=== PATIENT | female | born 2000 | race American Indian/Alaskan Native ===

== ENCOUNTER 2019-05-10 03:15 | Emergency (ER) | payer SELFPAY ==
[2019-05-10] MEDS ORDERED: SOLU-Medrol IM ONE (03:45)
[2019-05-10] MEDS ORDERED: BENADRYL PO ONE (03:45)
[2019-05-10] MEDS ORDERED: PEPCID PO ONE (03:45)
--- NOTE | 2019-05-10 04:46 | Emergency Department Report ---
ED General Adult HPI - General Chief complaint: Skin Rash Stated complaint: RASH/BITES/ALLERGIC REACTION Time Seen by Provider: 05/10/19 03:35 Source: patient Mode of arrival: Ambulatory Limitations: No Limitations - History of Present Illness Initial comments: Patient is a 19-year-old white female with no past medical history presents to the ED with complaint of acute onset persistent itchy erythematous papular urticarial rashes for the last 2 weeks intermittently. The patient states that the itching rashes or worsened the last 2 days especially in the evening. Patient states that she is unsure of the etiology of this rashes. Patient denies shortness of breath, swollen lips or tongue, dysphagia, dysphonia, wheezing, cough, chest pain, swollen face or eyes, nausea, vomiting, diarrhea or abdominal pain, dizziness, fever, chills or nasal congestion. MD Complaint: itching, allergic reaction; hives -: Sudden, week(s) (2) Location: neck, chest, back, abdomen, upper extremity, lower extremity Radiation: non-radiation Severity scale (0 -10): 7 Quality: burning, other (itching) Consistency: intermittent Improves with: none Worsens with: none Associated Symptoms: denies other symptoms. denies: confusion, chest pain, cough, diaphoresis, fever/chills, headaches, loss of appetite, malaise, na usea/vomiting, rash, seizure, shortness of breath, syncope, weakness Treatments Prior to Arrival: none - Related Data Previous Rx's Medication Instructions Recorded Last Taken Type Prednisone [predniSONE 10 mg 10 mg PO .TAPER #21 tab.ds.pk 05/10/19 Unknown Rx (6-Day Pack, 21 Tabs)] hydrOXYzine PAMOATE [Vistaril] 25 mg PO Q6HR PRN #30 capsule 05/10/19 Unknown Rx raNITIdine HCl [Zantac] 150 mg PO Q12H #30 tablet 05/10/19 Unknown Rx Allergies Allergy/AdvReac Type Severity Reaction Status Date / Time No Known Allergies Allergy Unverified 05/10/19 04:49 ED Review of Systems ROS: Stated complaint: RASH/BITES/ALLERGIC REACTION Other details as noted in HPI Constitutional: denies: chills, fever Eyes: denies: eye pain, eye discharge, vision change ENT: denies: ear pain, throat pain Respiratory: denies: cough, shortness of breath, wheezing Cardiovascular: denies: chest pain, palpitations Endocrine: no symptoms reported Gastrointestinal: denies: abdominal pain, nausea, diarrhea Genitourinary: denies: urgency, dysuria, discharge Musculoskeletal: denies: back pain, joint swelling, arthralgia Skin: rash, change in color, pruritus, other (diffuse erythematous maculopapular itchy urticarial rash). denies: lesions Neurological: denies: headache, weakness, paresthesias Psychiatric: denies: anxiety, depression Hematological/Lymphatic: denies: easy bleeding, easy bruising ED Past Medical Hx - Past Medical History Previous Medical History?: No - Surgical History Past Surgical History?: No - Social History Smoking Status: Never Smoker Substance Use Type: None - Medications Home Medications: Home Medications Medication Instructions Recorded Confirmed Last Taken Type Prednisone [predniSONE 10 mg 10 mg PO .TAPER #21 tab.ds.pk 05/10/19 Unknown Rx (6-Day Pack, 21 Tabs)] hydrOXYzine PAMOATE [Vistaril] 25 mg PO Q6HR PRN #30 capsule 05/10/19 Unknown Rx raNITIdine HCl [Zantac] 150 mg PO Q12H #30 tablet 05/10/19 Unknown Rx ED Physical Exam - General Limitations: No Limitations General appearance: alert, in no apparent distress - Head Head exam: Present: atraumatic, normocephalic, normal inspection - Eye Eye exam: Present: normal appearance, PERRL, EOMI. Absent: scleral icterus, conjunctival injection, nystagmus, periorbital swelling, periorbital tenderness Pupils: Present: normal accommodation - ENT ENT exam: Present: normal exam, normal orophraynx, mucous membranes moist, TM's normal bilaterally, normal external ear exam - Neck Neck exam: Present: normal inspection, full ROM. Absent: tenderness, meningismus, lymphadenopathy - Respiratory Respiratory exam: Present: normal lung sounds bilaterally. Absent: respiratory distress, wheezes, rales, accessory muscle use - Cardiovascular Cardiovascular Exam: Present: normal rhythm, tachycardia, normal heart sounds. Absent: systolic murmur, diastolic murmur, rubs, gallop - GI/Abdominal GI/Abdominal exam: Present: soft, normal bowel sounds. Absent: tenderness, guarding, rebound, hyperactive bowel sounds, hypoactive bowel sounds, organomegaly - Rectal Rectal exam: Present: deferred - Extremities Exam Extremities exam: Present: normal inspection, full ROM, normal capillary refill - Back Exam Back exam: Present: normal inspection, full ROM. Absent: tenderness, CVA tenderness (R), CVA tenderness (L), muscle spasm, paraspinal tenderness, vertebral tenderness - Neurological Exam Neurological exam: Present: alert, oriented X3, CN II-XII intact, normal gait, reflexes normal - Psychiatric Psychiatric exam: Present: normal affect, normal mood, anxious - Skin Skin exam: Present: warm, dry, intact, rash (diffuse erythematous maculopapular urticarial rashes), erythema, urticaria ED Course Vital Signs 05/10/19 05/10/19 05/10/19 03:24 05:16 05:20 Temperature 98.6 F 98.6 F Pulse Rate 120 H 70 Respiratory 18 16 Rate Blood Pressure 125/79 Blood Pressure 135/85 [Right] O2 Sat by Pulse 98 99 Oximetry - Reevaluation(s) Reevaluation #1: 05/10/19 06:03 This is a 19-year-old white female who presented to the ED with complaint of acute onset each erythematous maculopapular urticarial rashes for 2 weeks. Patient is alert and oriented 3, anxious and tachycardic in triage but in no acute distress. Patient was treated in the ED for acute allergic reaction with steroids, Benadryl and Pepcid. On reevaluation, patient's wheezing has resolved and the rashes have improved significantly. Patient was discharged home on a steroid Dosepak, Vistaril and Zantac and advised to follow-up with her primary care physician in 5-7 days for reevaluation. On reevaluation, the patient's tachycardia resolved with treatment. Patient was also advised to return to the ED immediately if symptoms get worse. 05/10/19 06:04 ED Medical Decision Making - Medical Decision Making This is a 19-year-old white female who presented to the ED with complaint of acute onset each erythematous maculopapular urticarial rashes for 2 weeks. Patient is alert and oriented 3, anxious and tachycardic in triage but in no acute distress. Patient was treated in the ED for acute allergic reaction with steroids, Benadryl and Pepcid. On reevaluation, patient's wheezing has resolved and the rashes have improved significantly. Patient was discharged home on a steroid Dosepak, Vistaril and Zantac and advised to follow-up with her primary care physician in 5-7 days for reevaluation. On reevaluation, the patient's tachycardia resolved with treatment. Patient was also advised to return to the ED immediately if symptoms get worse. - Differential Diagnosis acute allergic reaction; itching with irritation, urticaria Critical care attestation.: If time is entered above; I have spent that time in minutes in the direct care of this critically ill patient, excluding procedure time. ED Disposition Clinical Impression: Acute urticaria, Itching with irritation Acute allergic reaction Qualifiers: Encounter type: initial encounter Qualified Code(s): T78.40XA - Allergy, unspecified, initial encounter Disposition: TO HOME OR SELFCARE Is pt being admited?: No Does the pt Need Aspirin: No Condition: Stable Instructions: Urticaria (ED), Allergies (ED), Itchy Skin (ED) Additional Instructions: Take medications with food, drink plenty of fluids and follow-up with your primary care physician in 7-10 days for reevaluation. Return to the ED immediately if symptoms get worse. Prescriptions: Prednisone [predniSONE 10 mg (6-Day Pack, 21 Tabs)] 10 mg PO .TAPER #21 tab.ds.pk hydrOXYzine PAMOATE [Vistaril] 25 mg PO Q6HR PRN #30 capsule PRN Reason: Itching raNITIdine HCl [Zantac] 150 mg PO Q12H #30 tablet Referrals: [facility] [Outside] - 3-5 Days Time of Disposition: 05:08 Print Language: DIVEHI
[2019-05-10 05:17] VITALS: BP 135/85
== END 2019-05-10 06:00 | disposition home or self-care (01) ==
LOC: ED 03:15
DX: L50.0 Allergic urticaria (principal); Z79.899 Other long term (current) drug therapy
CPT/HCPCS: 96372; 99282; J2930

== ENCOUNTER 2019-08-26 00:22 | Emergency (ER) | payer SELFPAY ==
[2019-08-26 00:46] VITALS: BP 113/83
--- NOTE | 2019-08-26 01:14 | XRay Report ---
CHEST 2 VIEWS, 08/26/2019 1:02 AM INDICATION: Chest pain for one week COMPARISON: None FINDINGS: Support devices: None Heart: Heart size and pulmonary vascularity are within normal limits. Lungs/pleura: The lungs are well expanded and appear clear. Additional findings: Evaluation of bony structures demonstrates no evidence of acute bony abnormality . IMPRESSION: 1. No evidence of acute cardiopulmonary process. Signer Name: Nyasia Varghese MD Signed: 08/26/2019 1:10 AM Workstation Name: [email or web address]
--- NOTE | 2019-08-26 01:44 | Emergency Department Report ---
HPI - General Chief Complaint: Chest Pain Time Seen by Provider: 08/26/19 01:07 - [facility] HPI: Room 33 The patient is a 19-year-old female presenting with a chief complaint of sore throat. The patient states she's had a sore throat for the past 3 months. Patient states she saw a doctor approximately one month ago and was given an antibiotic (she cannot recall the name) states her symptoms have not improved. Patient denies cough and states she is uncertain if she is ever had a fever. The patient states her boyfriend recently became sick because her throat to hurt worse Location: [See above] Duration: [See above] Quality: [See above] Severity: [See above] Timing: [See above] Context: [See above] Modifying factors: [See above] Associated signs and symptoms: [see above] ED Past Medical Hx - Past Medical History Previous Medical History?: No - Surgical History Past Surgical History?: No - Family History Family history: no significant - Social History Smoking Status: Never Smoker Substance Use Type: None - Medications Home Medications: Home Medications Medication Instructions Recorded Confirmed Last Taken Type Prednisone [predniSONE 10 mg 10 mg PO .TAPER #21 tab.ds.pk 05/10/19 Unknown Rx (6-Day Pack, 21 Tabs)] hydrOXYzine PAMOATE [Vistaril] 25 mg PO Q6HR PRN #30 capsule 05/10/19 Unknown Rx raNITIdine HCl [Zantac] 150 mg PO Q12H #30 tablet 05/10/19 Unknown Rx Clindamycin [Clindamycin CAP] 300 mg PO Q6H #28 capsule 08/26/19 Unknown Rx HYDROcodone/APAP 5-325 [[place] 1 - 2 each PO Q6HR PRN #14 tablet 08/26/19 Unknown Rx 5/325] Ibuprofen [Motrin 800 MG tab] 800 mg PO Q8HR PRN #20 tablet 08/26/19 Unknown Rx ED Review of Systems ROS: Stated complaint: SORE THROAT CHILLS HEADACHE CHEST PAIN Other details as noted in HPI Constitutional: fever (?) Eyes: denies: eye pain ENT: throat pain Respiratory: denies: cough Cardiovascular: denies: chest pain Endocrine: no symptoms reported Gastrointestinal: denies: abdominal pain Genitourinary: denies: dysuria Musculoskeletal: denies: back pain Neurological: denies: headache Physical Exam - Physical Exam Vital Signs: Vital Signs 08/26/19 00:42 Temperature 98.9 F Pulse Rate 108 H Respiratory 18 Rate Blood Pressure 113/83 O2 Sat by Pulse 100 Oximetry Physical Exam: GENERAL: The patient is well-developed well-nourished female sitting in chair appearing to be in mild discomfort HEENT: Normocephalic. Atraumatic. Extraocular motions are intact. Patient has moist mucous membranes. Oropharynx clear NECK: Supple. There is no stridor CHEST/LUNGS: Clear to auscultation. There is no respiratory distress noted. HEART/CARDIOVASCULAR: Regular. There is no tachycardia. There is no gallop rub or murmur. ABDOMEN: Abdomen is soft, nontender. Patient has normal bowel sounds. There is no abdominal distention. SKIN: There is no rash. There is no edema. There is no diaphoresis. NEURO: The patient is awake, alert, and oriented. The patient is cooperative. The patient has normal speech MUSCULOSKELETAL: There is no evidence of acute injury. ED Course Vital Signs 08/26/19 00:42 Temperature 98.9 F Pulse Rate 108 H Respiratory 18 Rate Blood Pressure 113/83 O2 Sat by Pulse 100 Oximetry ED Medical Decision Making - Lab Data Result diagrams: 08/26/19 01:52 - Radiology Data Radiology results: report reviewed (chest x-ray), image reviewed (chest x-ray, lateral soft tissue neck x-ray) interpreted by me: Chest x-ray-no focal infiltrates, no pneumothorax Lateral soft tissue neck x-ray-no prevertebral swelling, no evidence of epiglottitis [facility] [address] [place] [address] XRay Report Signed Patient: DES FERNANDEZ MR#: [id number] : 2000 Acct:[id number] Age/Sex: 19 / F ADM Date: 08/26/19 Loc: ED Attending Dr: Ordering Physician: ЕЛЕНА ROJO MD Date of Service: 08/26/19 Procedure(s): XR chest routine 2V Accession Number(s): [id number] cc: ЕЛЕНА ROJO MD Fluoro Time In Minutes: CHEST 2 VIEWS, 08/26/2019 1:02 AM INDICATION: Chest pain for one week COMPARISON: None FINDINGS: Support devices: None Heart: Heart size and pulmonary vascularity are within normal limits. Lungs/pleura: The lungs are well expanded and appear clear. Additional findings: Evaluation of bony structures demonstrates no evidence of acute bony abnormality. IMPRESSION: 1. No evidence of acute cardiopulmonary process. Signer Name: Nyasia Varghese MD Signed: 08/26/2019 1:10 AM Workstation Name: [id number] Transcribed By: EB Dictated By: Nyasia Varghese MD Electronically Authenticated By: Nyasia Varghese MD Signed Date/Time: 08/26/19109 DD/ 8 TD/TT: - Differential Diagnosis pharyngitis, epiglottitis, mononucleosis Critical care attestation.: If time is entered above; I have spent that time in minutes in the direct care of this critically ill patient, excluding procedure time. ED Disposition Clinical Impression: Sore throat Disposition: DC- TO HOME OR SELFCARE Is pt being admited?: No Does the pt Need Aspirin: No Condition: Stable Instructions: Pharyngitis (ED) Additional Instructions: Return to the emergency department should you develop worsening symptoms, inability to tolerate food or liquids, high fever or any other concerns Prescriptions: Clindamycin [Clindamycin CAP] 300 mg PO Q6H #28 capsule Ibuprofen [Motrin 800 MG tab] 800 mg PO Q8HR PRN #20 tablet PRN Reason: Pain, Moderate (4-6) HYDROcodone/APAP 5-325 [[place] 5/325] 1 - 2 each PO Q6HR PRN #14 tablet PRN Reason: Pain Referrals: [facility] [Outside] - 3-5 Days YARIEL TINOCO MD [Staff Physician] - 3-5 Days (Dr Tinoco is an pulley mortiser operator (ear, nose and throat doctor) disease. Please follow up with him for further evaluation) Time of Disposition: 02:47
[2019-08-26] MEDS ORDERED: LIDOCAINE VISCOUS 2% 15 ML ORAL LIQD PO ONE (01:46)
[2019-08-26] MEDS ORDERED: KETOROLAC 60 MG/2 ML INJ IM ONE (01:46)
[2019-08-26 02:09] LABS: Basophils % (Auto) 0.1 % (0.0-1.8); Eosinophils # (Auto) 0.1 K/mm3 (0.0-0.4); Eosinophils % (Auto) 0.5 % (0.0-4.3); Hematocrit 39.2 % (30.3-42.9); Hemoglobin 13.1 gm/dl (10.1-14.3); Lymphocytes # (Auto) 1.2 K/mm3 (1.2-5.4); Lymphocytes % (Auto) 7.7 % (13.4-35.0); Mean Corpuscular HGB Conc 33 % (30-34); Mean Corpuscular Volume 91 fl (79-97); Monocytes # (Auto) 1.1 K/mm3 (0.0-0.8); Monocytes % (Auto) 6.9 % (0.0-7.3); Platelet Count 341 K/mm3 (140-440); Red Cell Distribution Width 12.8 % (13.2-15.2)
[2019-08-26 02:35] LABS: Alanine Aminotransferase 10 units/L (7-56); Albumin 4.1 g/dL (3.9-5); BUN/Creatinine Ratio 15; Blood Urea Nitrogen 9 mg/dL (7-17); Calcium 9.1 mg/dL (8.4-10.2); Hemolysis Index 7
--- NOTE | 2019-08-26 03:08 | XRay Report ---
EXAMINATION: Soft tissue neck radiograph, 2 views, 08/26/2019 CLINICAL INFORMATION: Chest pain and sore throat for one week COMPARISON: None. FINDINGS: There is no evidence of prevertebral soft tissue swelling. The central airway appears paten t. Evaluation of the cervical spine demonstrates no evidence of acute bony abnormality. IMPRESSION: No definitive radiographic evidence of abnormality of the neck soft tissues. Signer Name: Nyasia Varghese MD Signed: 08/26/2019 3:04 AM Workstation Name: [id number]
== END 2019-08-26 02:55 | disposition home or self-care (01) ==
LOC: ED 00:22
DX: J02.9 Acute pharyngitis, unspecified (principal); Z79.899 Other long term (current) drug therapy
CPT/HCPCS: 36415; 70360; 71046; 80053; 84703; 85025; 86308; 93005; 93010; 96372; 99284; J1885